=== PATIENT | female | born 1950 | race Caucasian/White ===

== ENCOUNTER 2017-07-09 05:25 | Inpatient (IN) | payer MEDICARE ==
[2017-06-27 12:03] LABS: BASOPHILS % (AUTO) 0.2 % (0-1); EOSINOPHILS # (AUTO) 0.4 X10'3 (0-0.9); LYMPHOCYTES # (AUTO) 2.8 X10'3 (1.1-4.8); LYMPHOCYTES % (AUTO) 39.2 % (21-51); MEAN CORPUSCULAR HEMOGLOBIN 29.5 PG (27.0-31.0); MEAN CORPUSCULAR HGB CONC 34.7 % (33.0-36.5); MEAN CORPUSCULAR VOLUME 85.1 FL (78-98); MEAN PLATELET VOLUME 7.6 FL (7.4-10.4); MONOCYTES # (AUTO) 0.5 X10'3 (0-0.9); MONOCYTES % (AUTO) 6.5 % (2-12); NEUTROPHILS # (AUTO) 3.5 X10'3 (1.8-7.7); NEUTROPHILS % (AUTO) 49.1 % (42-75); PRE OP HEMATOCRIT 43.6 % (35.0-45.0); PRE OP HEMOGLOBIN 15.1 g/dL (12.0-16.0); PRE OP PLATELET COUNT 183 X10'3 (140-440); RED BLOOD COUNT 5.12 X10'6 (4.20-5.60); RED CELL DISTRIBUTION WIDTH 13.6 % (11.5-14.5)
[2017-06-27 12:13] LABS: PRE OP PROTIME 10.8 SECONDS (9.0-12.0)
[2017-06-27 12:26] LABS: ALBUMIN 4.5 G/DL (3.4-5.0); ALKALINE PHOSPHATASE 66 IU/L (46-116); BLOOD UREA NITROGEN 15 MG/DL (7-18); BUN/CREATININE RATIO 18.8 (6.6-38.0); CALCIUM 9.9 MG/DL (8.5-10.1); CHLORIDE 105 MMOL/L (99-107); PRE OP ALT 38 U/L (30-65); PRE OP ANION GAP 8 (8-16); PRE OP AST 26 U/L (10-37); PRE OP BILIRUB, TOTAL 0.5 MG/DL (0.0-1.0); PRE OP GLUCOSE 91 MG/DL (70-104); PRE OP POTASSIUM 3.7 MMOL/L (3.4-5.1); PRE OP SODIUM 144 MMOL/L (135-145); TOTAL CARBON DIOXIDE 30.9 MMOL/L (24-32); TOTAL PROTEIN 8.8 G/DL (6.4-8.2); eGFR 71 ML/MIN
[~2017-07-09] VITALS: Ht 154.9 cm; Wt 50.0 kg
[2017-07-09] VITALS (21 sets, daily range): BP systolic 84–143; BP diastolic 29–68
[~2017-07-09 05:25] MED LIST: CALC-1051 PO; CRAN1POW2 PO; DILT180C66 PO; FISH12002 PO; LACT1CAP65 PO; LISI40TA4 PO; MULT-38 PO; OMEP20CA10 PO; ROSU5TAB PO; ringers solution, lacted 1,000 ML IV SCH; vancomycin/NS 1 GM ADD-VANTAGE 250 ML IV ONE
[2017-07-09] MEDS ORDERED: MIDAZolam 5mg/5ml vial ONE (06:54)
[2017-07-09] MEDS ORDERED: ceFAZolin 1000mg inj ONE (06:58)
[2017-07-09] MEDS ORDERED: morphine /PF 1mg/ml 10ml inj. ONE (07:07)
[2017-07-09] MEDS ORDERED: propofol inj 20 ML IV ONE ×2 (07:10→08:29)
[2017-07-09] MEDS ORDERED: fentaNYL /PF 50mcg/ml 5ml ampule ONE (07:11)
[2017-07-09] MEDS ORDERED: BUPIVAcaine/dex-water/PF 7.5 mg/ml 2ml ampul ONE (07:16)
[2017-07-09] MEDS ORDERED: rocuronium 10mg/ml inj IV ONE (07:21)
[2017-07-09] MEDS ORDERED: tranexamic acid inj. 1,000 MG in normal saline 100ml IV soln 100 ML IV ONE (08:00)
[2017-07-09] MEDS ORDERED: vancomycin/NS 1 GM ADD-VANTAGE 250 ML IV ONE (08:00)
[2017-07-09] MEDS ORDERED: famotidine 20mg tablet PO ONE (08:00)
[2017-07-09] MEDS ORDERED: cefazolin/dext.iso 2gm/50ml 50 ML IV ONE (08:00)
[2017-07-09] MEDS ORDERED: dexamethasone sod phosphate 4mg/ml inj. ONE (08:30)
[2017-07-09] MEDS ORDERED: ondansetron/PF 4mg/2ml inj ONE (08:31)
[2017-07-09] MEDS ORDERED: ringers solution, lacted 1,000 ML IV SCH (08:36)
[2017-07-09] MEDS ORDERED: ondansetron/PF 4mg/2ml inj IV PRN (08:40)
[2017-07-09] MEDS ORDERED: labetalol 5mg/ml 20ml inj. IV PRN (08:40)
[2017-07-09] MEDS ORDERED: fentaNYL/PF 50MCG/1 ML 2ML syringe IV PRN ×2 (08:40)
[2017-07-09] MEDS ORDERED: meperidine/PF 50mg/ml syringe IV PRN ×2 (08:40)
[2017-07-09] MEDS ORDERED: naloxone 2mg/2ml inj 2 MG in normal saline 500ml IV soln 498 ML IV PRN (08:40)
[2017-07-09] MEDS ORDERED: proCHLORperazine 10 MG/2 ml inj IV PRN (08:40)
[2017-07-09] MEDS ORDERED: HYDROmorphone inj. 0.5 MG/0.5 ML DISP.SYRIN IV PRN ×3 (08:40→10:45)
[2017-07-09] MEDS ORDERED: glycopyrrolate 0.2mg/ml inj ONE (09:26)
[2017-07-09] MEDS ORDERED: phenylephrine 10mg/ml inj IV ONE ×2 (09:48→09:50)
[2017-07-09] MEDS ORDERED: ePHEDrine 50MG/ML INJ. ONE (10:23)
[2017-07-09] MEDS: potassium cl 20mEq in 1/2 NS 1,000 ML IV SCH (10:43)
[2017-07-09] MEDS ORDERED: magnesium hydroxide 30ml (MOM) UD suspension PO PRN (10:45)
[2017-07-09] MEDS ORDERED: diphenhydrAMINE 25mg capsule PO PRN ×2 (10:45)
[2017-07-09] MEDS ORDERED: acetaminophen 325mg tablet PO PRN (10:45)
[2017-07-09] MEDS ORDERED: bisacodyl 10mg suppository rectal RC PRN (10:45)
[2017-07-09] MEDS ORDERED: tranexamic acid inj. 500 MG in normal saline 100ml IV soln 100 ML IV ONE (14:00)
[2017-07-09] MEDS: HYDROcodone/acetaminophen 10/325mg tab PO PRN (14:22)
[2017-07-09] MEDS: aspirin 81mg tab.chew PO SCH (16:47)
[2017-07-09] MEDS: ceFAZolin 1GM/D5W- ADD-VANTAGE 50 ML IV SCH (16:47)
[2017-07-09] MEDS ORDERED: vancomycin/NS 1 GM ADD-VANTAGE 250 ML IV SCH (20:00)
[2017-07-09] MEDS: sennosides 8.6mg tablet PO SCH (20:08)
[2017-07-09] MEDS ORDERED: normal saline 500ml IV soln 500 ML IV ONE (21:55)
[2017-07-10] VITALS (8 sets, daily range): BP systolic 98–122; BP diastolic 37–57
[2017-07-10] MEDS: ceFAZolin 1GM/D5W- ADD-VANTAGE 50 ML IV SCH (00:10)
[2017-07-10] MEDS: potassium cl 20mEq in 1/2 NS 1,000 ML IV SCH ×2 (00:11→09:47)
[2017-07-10] MEDS: HYDROcodone/acetaminophen 10/325mg tab PO PRN ×5 (00:11→21:26)
[2017-07-10 06:01] LABS: BASOPHILS % (AUTO) 0 % (0-1); EOSINOPHILS % (AUTO) 0 % (0-6); HEMATOCRIT 33.1 % (35.0-45.0); HEMOGLOBIN 11.5 g/dl (12.0-16.0); LYMPHOCYTES # (AUTO) 0.9 X10'3 (1.1-4.8); LYMPHOCYTES % (AUTO) 9.2 % (21-51); MEAN CORPUSCULAR HGB CONC 34.6 % (33.0-36.5); MEAN CORPUSCULAR VOLUME 86.8 FL (78-98); MEAN PLATELET VOLUME 7.8 FL (7.4-10.4); MONOCYTES # (AUTO) 0.9 X10'3 (0-0.9); MONOCYTES % (AUTO) 8.8 % (2-12); NEUTROPHILS # (AUTO) 8.3 X10'3 (1.8-7.7); PLATELET COUNT 136 X10'3 (140-440); RED BLOOD COUNT 3.82 X10'6 (4.20-5.60); WHITE BLOOD COUNT 10.2 X10'3 (4.5-11.0)
[2017-07-10 06:16] LABS: ALANINE AMINOTRANSFERASE 24 U/L (12-78); ALBUMIN 2.9 G/DL (3.4-5.0); ALBUMIN/GLOBULIN RATIO 0.9 (1.1-1.5); ALKALINE PHOSPHATASE 37 IU/L (46-116); ANION GAP 7 (8-16); ASPARTATE AMINO TRANSFERASE 21 U/L (10-37); BILIRUBIN,TOTAL 0.4 MG/DL (0.1-1.0); BLOOD UREA NITROGEN 14 MG/DL (7-18); BUN/CREATININE RATIO 18.2 (6.6-38.0); CALCIUM 8.4 MG/DL (8.5-10.1); CHLORIDE 107 MMOL/L (99-107); CREATININE 0.77 MG/DL (0.40-0.90); GLUCOSE 145 MG/DL (70-104); POTASSIUM 4.4 MMOL/L (3.5-5.1); SODIUM 140 MMOL/L (135-145); TOTAL CARBON DIOXIDE 26.5 MMOL/L (24-32); eGFR 75 ML/MIN
[2017-07-10] MEDS: lisinopril 20mg tablet PO SCH (07:24)
[2017-07-10] MEDS ORDERED: diltiazem CD 180mg cap (once-daily) PO SCH (08:00)
[2017-07-10] MEDS: aspirin 81mg tab.chew PO SCH ×2 (08:09→17:44)
[2017-07-10] MEDS: sennosides 8.6mg tablet PO SCH (21:25)
[2017-07-11] MEDS: HYDROcodone/acetaminophen 10/325mg tab PO PRN ×4 (01:21→13:34)
[2017-07-11 01:28] VITALS: BP 122/65
[2017-07-11 06:00] VITALS: BP 112/54
[2017-07-11 07:01] LABS: BASOPHILS % (AUTO) 0.2 % (0-1); EOSINOPHILS # (AUTO) 0.1 X10'3 (0-0.9); EOSINOPHILS % (AUTO) 0.8 % (0-6); HEMOGLOBIN 10.9 g/dl (12.0-16.0); LYMPHOCYTES # (AUTO) 2.1 X10'3 (1.1-4.8); LYMPHOCYTES % (AUTO) 19.8 % (21-51); MEAN CORPUSCULAR HEMOGLOBIN 29.8 PG (27.0-31.0); MEAN CORPUSCULAR HGB CONC 34.1 % (33.0-36.5); MEAN CORPUSCULAR VOLUME 87.3 FL (78-98); MEAN PLATELET VOLUME 8.1 FL (7.4-10.4); MONOCYTES # (AUTO) 1.1 X10'3 (0-0.9); MONOCYTES % (AUTO) 10.2 % (2-12); NEUTROPHILS # (AUTO) 7.3 X10'3 (1.8-7.7); PLATELET COUNT 135 X10'3 (140-440); RED BLOOD COUNT 3.67 X10'6 (4.20-5.60); RED CELL DISTRIBUTION WIDTH 13.4 % (11.5-14.5); WHITE BLOOD COUNT 10.5 X10'3 (4.5-11.0)
[2017-07-11] MEDS: lisinopril 20mg tablet PO SCH (07:20)
[2017-07-11 07:24] LABS: ALANINE AMINOTRANSFERASE 22 U/L (12-78); ALBUMIN 2.8 G/DL (3.4-5.0); ALBUMIN/GLOBULIN RATIO 0.8 (1.1-1.5); ALKALINE PHOSPHATASE 46 IU/L (46-116); ANION GAP 5 (8-16); ASPARTATE AMINO TRANSFERASE 20 U/L (10-37); BILIRUBIN,TOTAL 0.3 MG/DL (0.1-1.0); BLOOD UREA NITROGEN 13 MG/DL (7-18); BUN/CREATININE RATIO 18.1 (6.6-38.0); CALCIUM 8.7 MG/DL (8.5-10.1); CHLORIDE 107 MMOL/L (99-107); CREATININE 0.72 MG/DL (0.40-0.90); GLUCOSE 100 MG/DL (70-104); POTASSIUM 3.9 MMOL/L (3.5-5.1); SODIUM 143 MMOL/L (135-145); TOTAL PROTEIN 6.4 G/DL (6.4-8.2); eGFR 81 ML/MIN
[2017-07-11] MEDS: diltiazem CD 120mg capsule (once-daily) PO SCH (07:31)
[2017-07-11] MEDS: aspirin 81mg tab.chew PO SCH ×2 (07:31→17:40)
[2017-07-11] MEDS: pantoprazole 40mg Tablet.DR PO PRN (09:37)
[2017-07-11 10:00] VITALS: BP 102/57
[2017-07-11] MEDS ORDERED: HYDR-3972 PO (10:03)
[2017-07-11] MEDS ORDERED: ASPI-1265 PO (10:03)
[2017-07-11] MEDS: ondansetron/PF 4mg/2ml inj IV PRN (13:34)
[2017-07-11 14:00] VITALS: BP 120/70
[2017-07-11 17:00] VITALS: BP 112/42
[2017-07-11] MEDS: HYDROcodone/acetaminophen 5mg/325mg tablet PO PRN ×2 (18:13→23:51)
[2017-07-11] MEDS: sennosides 8.6mg tablet PO SCH (20:48)
[2017-07-11 22:00] VITALS: BP 118/48
[2017-07-12 05:58] LABS: BASOPHILS % (AUTO) 0.3 % (0-1); EOSINOPHILS # (AUTO) 0.1 X10'3 (0-0.9); EOSINOPHILS % (AUTO) 1.5 % (0-6); HEMATOCRIT 29.6 % (35.0-45.0); HEMOGLOBIN 10.3 g/dl (12.0-16.0); LYMPHOCYTES # (AUTO) 2.2 X10'3 (1.1-4.8); LYMPHOCYTES % (AUTO) 26.2 % (21-51); MEAN CORPUSCULAR HEMOGLOBIN 29.8 PG (27.0-31.0); MEAN CORPUSCULAR HGB CONC 34.8 % (33.0-36.5); MEAN CORPUSCULAR VOLUME 85.6 FL (78-98); MEAN PLATELET VOLUME 7.6 FL (7.4-10.4); MONOCYTES # (AUTO) 0.8 X10'3 (0-0.9); MONOCYTES % (AUTO) 9.8 % (2-12); NEUTROPHILS # (AUTO) 5.2 X10'3 (1.8-7.7); NEUTROPHILS % (AUTO) 62.2 % (42-75); PLATELET COUNT 146 X10'3 (140-440); RED BLOOD COUNT 3.46 X10'6 (4.20-5.60); RED CELL DISTRIBUTION WIDTH 13.2 % (11.5-14.5); WHITE BLOOD COUNT 8.4 X10'3 (4.5-11.0)
[2017-07-12 06:00] VITALS: BP 133/55
[2017-07-12] MEDS: HYDROcodone/acetaminophen 10/325mg tab PO PRN (06:07)
[2017-07-12 06:36] LABS: ALANINE AMINOTRANSFERASE 21 U/L (12-78); ALBUMIN 2.7 G/DL (3.4-5.0); ALBUMIN/GLOBULIN RATIO 0.7 (1.1-1.5); ALKALINE PHOSPHATASE 39 IU/L (46-116); ANION GAP 8 (8-16); ASPARTATE AMINO TRANSFERASE 24 U/L (10-37); BILIRUBIN,TOTAL 0.4 MG/DL (0.1-1.0); BLOOD UREA NITROGEN 12 MG/DL (7-18); BUN/CREATININE RATIO 17.1 (6.6-38.0); CALCIUM 8.7 MG/DL (8.5-10.1); CHLORIDE 104 MMOL/L (99-107); GLUCOSE 95 MG/DL (70-104); POTASSIUM 3.9 MMOL/L (3.5-5.1); SODIUM 141 MMOL/L (135-145); TOTAL CARBON DIOXIDE 29.2 MMOL/L (24-32); TOTAL PROTEIN 6.4 G/DL (6.4-8.2); eGFR 83 ML/MIN
[2017-07-12] MEDS ORDERED: HYDROcodone/acetaminophen 10/325mg tab PO PRN (07:20)
[2017-07-12] MEDS ORDERED: HYDROcodone/acetaminophen 10/325mg tab PO ONE (07:20)
[2017-07-12] MEDS: diltiazem CD 120mg capsule (once-daily) PO SCH (07:47)
[2017-07-12] MEDS: pantoprazole 40mg Tablet.DR PO PRN (07:48)
[2017-07-12] MEDS: aspirin 81mg tab.chew PO SCH (07:48)
[2017-07-12] MEDS: lisinopril 20mg tablet PO SCH (08:00)
[2017-07-12 09:13] VITALS: BP 190/54
[2017-07-12] MEDS: ondansetron/PF 4mg/2ml inj IV PRN (09:59)
[2017-07-12 10:00] VITALS: BP 114/44
== END 2017-07-12 11:52 | disposition home or self-care (01) | DRG 470 ==
LOC: PAS IN 05:25 → EDSTATUS 07:30 → ORTHO 4S 12:00
PROVIDERS: ADMIT Orthopaedic Surgery; ATTEND Orthopaedic Surgery
PROC: 0SR9069 Replacement of Right Hip Joint with Oxidized Zirconium on Polyethylene Synthetic Substitute, Cemented, Open Approach (ICD-10-PCS; principal; 2017-07-09 07:21)
DX: M16.11 Unilateral primary osteoarthritis, right hip (principal); D62 Acute posthemorrhagic anemia; E78.5 Hyperlipidemia, unspecified; I10 Essential (primary) hypertension; K21.9 Gastro-esophageal reflux disease without esophagitis; Z79.899 Other long term (current) drug therapy; Z88.2 Allergy status to sulfonamides
CPT/HCPCS: 36415; 80053; 85025; 85610; 85730; 86885; 86900; 86901; 86920; 87070; 97110; 97116; 97162; 97530; A6223; A6253; A6449; A7000; C1713; C1758; C1776; J0690; J1100; J2250; J2274; J2370; J2405; J2704; J3010; J3370; J3490; J7030; J7120

== ENCOUNTER 2023-05-05 15:39 | Emergency (ER) | payer MEDICARE ==
[~2023-05-05] VITALS: Ht 152.4 cm; Wt 48.2 kg
[~2023-05-05 15:39] MED LIST changes: +ASPI-1265 PO; -CALC-1051 PO; -CRAN1POW2 PO; -FISH12002 PO; +HYDR-3972 PO; -LACT1CAP65 PO; +LISI40TA13 PO; -LISI40TA4 PO; -MULT-38 PO; -OMEP20CA10 PO; +OMEP20CA15 PO; -ROSU5TAB PO; -ringers solution, lacted 1,000 ML IV SCH; -vancomycin/NS 1 GM ADD-VANTAGE 250 ML IV ONE
[2023-05-05 17:18] LABS: BASOPHILS % (AUTO) 0.1 % (0-1); EOSINOPHILS % (AUTO) 0.1 % (0-6); HEMATOCRIT 39.8 % (35.0-45.0); HEMOGLOBIN 13.5 g/dl (12.0-16.0); LYMPHOCYTES # (AUTO) 0.7 X10'3 (1.1-4.8); LYMPHOCYTES % (AUTO) 4.6 % (21-51); MEAN CORPUSCULAR HEMOGLOBIN 29.3 PG (27.0-31.0); MEAN CORPUSCULAR VOLUME 86.2 FL (78-98); MEAN PLATELET VOLUME 7.4 FL (7.4-10.4); MONOCYTES # (AUTO) 0.8 X10'3 (0-0.9); MONOCYTES % (AUTO) 5.3 % (2-12); NEUTROPHILS # (AUTO) 13.4 X10'3 (1.8-7.7); NEUTROPHILS % (AUTO) 89.9 % (42-75); PLATELET COUNT 130 X10'3 (140-440); RED BLOOD COUNT 4.62 X10'6 (4.20-5.60); RED CELL DISTRIBUTION WIDTH 12.9 % (11.5-14.5); WHITE BLOOD COUNT 14.9 X10'3 (4.5-11.0)
[2023-05-05 17:24] LABS: ALANINE AMINOTRANSFERASE 18 U/L (12-78); ALBUMIN 3.8 G/DL (3.4-5.0); ALBUMIN/GLOBULIN RATIO 1.1 (1.1-1.5); ALKALINE PHOSPHATASE 58 IU/L (46-116); ANION GAP 12 (8-16); ASPARTATE AMINO TRANSFERASE 17 U/L (10-37); BILIRUBIN,TOTAL 0.6 MG/DL (0.1-1.0); BLOOD UREA NITROGEN 19 MG/DL (7-18); BUN/CREATININE RATIO 20.7 (10.0-20.0); CALCIUM 8.2 MG/DL (8.5-10.1); CHLORIDE 102 MMOL/L (99-107); CREATININE 0.92 MG/DL (0.40-0.90); GLUCOSE 109 MG/DL (70-104); MAGNESIUM 1.5 MG/DL (1.5-2.4); POTASSIUM 3.4 MMOL/L (3.5-5.1); SODIUM 138 MMOL/L (135-145); TOTAL CARBON DIOXIDE 24.1 MMOL/L (24-32); TOTAL PROTEIN 7.3 G/DL (6.4-8.2); eCRCL 39 ML/MIN; eGFR 60 ML/MIN
[2023-05-05 18:38] LABS: BILIRUBIN,URINE NEGATIVE (Neg); CLARITY,URINE CLEAR (Clear); COLOR,URINE YELLOW (Yellow); GLUCOSE, URINE NEGATIVE (Neg); KETONES,URINE 15 mg/dl (Neg); LEUKOCYTE ESTERASE ,URINE NEGATIVE (Neg); NITRITES, URINE NEGATIVE (Neg); OCCULT BLOOD,URINE LARGE (Neg); PROTEIN,URINE NEGATIVE (Neg); UROBILINOGEN,URINE 0.2 E.U/dL (0.2-1.0)
[2023-05-05 18:45] LABS: UA COLLECTION TYPE VOIDED
[2023-05-05 18:51] LABS: BACTERIA,URINE NONE SEEN /HPF (Neg); SQUAMOUS EPITHELIAL CELL,UR FEW /LPF (FEW); WBC,URINE 0-4 /HPF (0-4)
[2023-05-05 18:52] LABS: MUCUS STRANDS NONE SEEN /LPF (Neg)
[2023-05-05] MEDS: acetaminophen 325mg tablet PO STA (19:30)
[2023-05-05 23:47] LABS: APPEARANCE,CSF CLEAR; CSF SUPERNATANT COLOR COLORLESS; CSF VOLUME 4 ML; TUBE# COUNTED 1
[2023-05-05 23:48] LABS: CSF RBC 0 /CU MM (0)
[2023-05-05 23:50] LABS: GLUCOSE,CSF 69 MG/DL (40-75); TOTAL PROTEIN,CSF 48 MG/DL (30-60)
[2023-05-05 23:52] LABS: APPEARANCE,CSF CLEAR; CSF SUPERNATANT COLOR COLORLESS; CSF VOLUME 4 ML; CSF WBC CT 2 /CU MM (0-5); TUBE# COUNTED 4
[2023-05-05 23:53] LABS: CSF RBC 0 /CU MM (0)
[2023-05-05 23:54] LABS: CSF WBC CT 2 /CU MM (0-5)
[2023-05-06] MEDS ORDERED: AMOX-117 PO (00:07)
[2023-05-06 00:22] VITALS: BP 116/46; PULSE 96; RESP 16; TEMP 98.1; O2SAT 99
== END 2023-05-06 00:25 | disposition home or self-care (01) ==
LOC: ER 15:39
DX: D72.829 Elevated white blood cell count, unspecified (principal); E86.0 Dehydration; M19.90 Unspecified osteoarthritis, unspecified site; E78.00 Pure hypercholesterolemia, unspecified; Z88.2 Allergy status to sulfonamides; Z79.82 Long term (current) use of aspirin; Z79.899 Other long term (current) drug therapy
CPT/HCPCS: 36415; 62270; 70450; 71045; 80053; 81001; 82945; 83605; 83735; 84145; 84157; 85025; 87015; 87040; 87070; 87502; 87503; 87634; 87811; 89051; 93005; 99285; A6449

== ENCOUNTER 2023-05-10 12:54 | Emergency (ER) | payer MEDICARE ==
[~2023-05-10] VITALS: Ht 154.9 cm; Wt 46.7 kg
[~2023-05-10 12:54] MED LIST changes: +AMOX-117 PO
[2023-05-10 13:37] VITALS: TEMP 97.8
[2023-05-10 14:05] VITALS: BP 179/77; PULSE 86; RESP 18; O2SAT 99
[2023-05-10 14:07] LABS: BASOPHILS % (AUTO) 0.2 % (0-1); EOSINOPHILS # (AUTO) 0.5 X10'3 (0-0.9); HEMOGLOBIN 14.2 g/dl (12.0-16.0); LYMPHOCYTES % (AUTO) 23.5 % (21-51); MEAN CORPUSCULAR HEMOGLOBIN 29.1 PG (27.0-31.0); MEAN CORPUSCULAR HGB CONC 33.9 g/dL (33.0-36.5); MEAN CORPUSCULAR VOLUME 85.9 FL (78-98); MONOCYTES # (AUTO) 1.3 X10'3 (0-0.9); MONOCYTES % (AUTO) 10.5 % (2-12); NEUTROPHILS # (AUTO) 7.9 X10'3 (1.8-7.7); NEUTROPHILS % (AUTO) 61.8 % (42-75); PLATELET COUNT 199 X10'3 (140-440); RED BLOOD COUNT 4.89 X10'6 (4.20-5.60); RED CELL DISTRIBUTION WIDTH 13.2 % (11.5-14.5); WHITE BLOOD COUNT 12.8 X10'3 (4.5-11.0)
[2023-05-10 14:11] LABS: ANION GAP 6 (8-16); BLOOD UREA NITROGEN 13 MG/DL (7-18); BUN/CREATININE RATIO 18.8 (10.0-20.0); CALCIUM 9.7 MG/DL (8.5-10.1); CHLORIDE 101 MMOL/L (99-107); CREATININE 0.69 MG/DL (0.40-0.90); GLUCOSE 96 MG/DL (70-104); POTASSIUM 3.7 MMOL/L (3.5-5.1); SODIUM 140 MMOL/L (135-145); eCRCL 53 ML/MIN; eGFR 83 ML/MIN
[2023-05-10 14:13] LABS: BILIRUBIN,URINE NEGATIVE (Neg); CLARITY,URINE CLEAR (Clear); COLOR,URINE YELLOW (Yellow); GLUCOSE, URINE NEGATIVE (Neg); KETONES,URINE NEGATIVE (Neg); LEUKOCYTE ESTERASE ,URINE TRACE (Neg); NITRITES, URINE NEGATIVE (Neg); OCCULT BLOOD,URINE SMALL (Neg); PROTEIN,URINE NEGATIVE (Neg); UROBILINOGEN,URINE 0.2 E.U/dL (0.2-1.0)
[2023-05-10 14:20] LABS: UA COLLECTION TYPE CLN CATCH MIDSTREAM
[2023-05-10 14:42] LABS: SQUAMOUS EPITHELIAL CELL,UR MODERATE /LPF (FEW)
[2023-05-10 14:43] LABS: TRANSITIONAL EPI CELLS,URINE MODERATE /HPF; WBC,URINE 0-4 /HPF (0-4)
[2023-05-10 14:44] LABS: RBC,URINE 0-2 /HPF (0-2)
[2023-05-10 14:45] LABS: BACTERIA,URINE FEW /HPF (Neg)
== END 2023-05-10 14:45 | disposition home or self-care (01) ==
LOC: ER 12:55
DX: R22.0 Localized swelling, mass and lump, head (principal); Z20.822 Contact with and (suspected) exposure to COVID-19; T36.95XA Adverse effect of unspecified systemic antibiotic, initial encounter; I10 Essential (primary) hypertension; R50.9 Fever, unspecified; R00.0 Tachycardia, unspecified; R06.02 Shortness of breath; E86.0 Dehydration; G89.29 Other chronic pain; D72.829 Elevated white blood cell count, unspecified; M19.90 Unspecified osteoarthritis, unspecified site; M81.0 Age-related osteoporosis without current pathological fracture; E78.00 Pure hypercholesterolemia, unspecified; Z98.890 Other specified postprocedural states; Z88.0 Allergy status to penicillin; Z88.2 Allergy status to sulfonamides; Z79.899 Other long term (current) drug therapy; Z79.82 Long term (current) use of aspirin; Y92.89 Other specified places as the place of occurrence of the external cause
CPT/HCPCS: 36415; 80048; 81001; 85025; 87088; 99283